=== PATIENT | female | born 1990 ===

== ENCOUNTER 2024-05-19 18:15 | Emergency (ER) | payer OTHER ==
[2024-05-19] MEDS ORDERED: Ibuprofen 800 MG TAB ONE (21:23)
== END 2024-05-19 21:37 | disposition home or self-care (01) ==
LOC: ERS 18:15
DX: S83.91XA Sprain of unspecified site of right knee, initial encounter (principal); X50.1XXA Overexertion from prolonged static or awkward postures, initial encounter
CPT/HCPCS: 99283